=== PATIENT | female | born 1995 | race Caucasian/White ===

== ENCOUNTER 2019-12-04 06:30 | Inpatient (IN) ==
[2019-12-04] MEDS ORDERED: LR 1000 ML IV 1,000 ML IV ONE ×2 (06:40→07:36)
[2019-12-04] MEDS ORDERED: ANCEF 1 GRAM IV PREMIX* 1 G/50 ML BAG IV ONE ×2 (06:40→07:12)
[2019-12-04] MEDS ORDERED: D5 1/2 NS 1000 ML 1,000 ML IV SCH (06:49)
[2019-12-04] MEDS ORDERED: ANCEF VIAL 1 GRAM IVP ONE (06:49)
[2019-12-04] MEDS ORDERED: DILAUDID INJ ONE (06:53)
[2019-12-04] MEDS ORDERED: PITOCIN ONE ×2 (07:10→10:56)
[2019-12-04] MEDS ORDERED: D5 1/2 NS 1L W PITOCIN 20 UNITS/L 20 UNITS/1,000 ML BAG IV ONE (07:42)
[2019-12-04] MEDS ORDERED: DILAUDID INJ IVP PRN (08:46)
[2019-12-04] MEDS ORDERED: PHENERGAN INJ 25 MG IM PRN (08:46)
[2019-12-04] MEDS ORDERED: ZOFRAN INJ 4 MG VIAL IVP PRN ×2 (08:46→09:12)
[2019-12-04] MEDS ORDERED: BENADRYL INJ 50 MG VIAL IVP PRN (08:46)
[2019-12-04] MEDS ORDERED: REGLAN INJ 10 MG VIAL IVP PRN ×2 (08:46→09:12)
[2019-12-04] MEDS ORDERED: MYLICON TAB 80 MG CHEW PO PRN (09:12)
[2019-12-04] MEDS ORDERED: ADACEL or BOOSTRIX TDaP VACCINE IM ONE (09:12)
[2019-12-04] MEDS ORDERED: PERCOCET TAB 5/325 MG PO PRN ×2 (09:12→16:16)
[2019-12-04] MEDS ORDERED: D5 1/2 NS 1000 ML 1,000 ML with PITOCIN 20 UNITS IV SCH ×2 (09:12)
[2019-12-04] MEDS ORDERED: NARCAN INJ IVP PRN (09:12)
[2019-12-04] MEDS ORDERED: TORADOL 30 MG VIAL IVP PRN (09:12)
[2019-12-04] MEDS ORDERED: DIPRIVAN VIAL ONE (10:56)
[2019-12-04] MEDS ORDERED: EPHEDRINE SULFATE INJ ONE (10:56)
[2019-12-04] MEDS ORDERED: VERSED ONE (10:56)
[2019-12-04] MEDS ORDERED: MARCAINE SPINAL ONE (10:56)
[2019-12-04] MEDS ORDERED: XYLOCAINE 2 % (PLAIN) ONE (10:56)
[2019-12-04] MEDS: PRENATAL PLUS PO SCH (12:34)
[2019-12-04] MEDS: BENADRYL INJ 50 MG VIAL IVP PRN ×2 (12:55→20:51)
[2019-12-04] MEDS ORDERED: MOTRIN TAB 800 MG PO PRN (16:16)
[2019-12-04] MEDS: COLACE CAP 100 MG PO SCH (20:51)
[2019-12-04] MEDS: BACTROBAN TOPICAL OINT TOP SCH (22:12)
[2019-12-05] MEDS: BACTROBAN TOPICAL OINT TOP SCH (05:11)
[2019-12-05 05:42] LABS: HEMATOCRIT 24.3 % (36.0-47.0); HEMOGLOBIN 8.4 g/dL (12.0-16.0)
[2019-12-05] MEDS ORDERED: ADACEL or BOOSTRIX TDaP VACCINE IM ONE (08:44)
[2019-12-05] MEDS: COLACE CAP 100 MG PO SCH (08:57)
[2019-12-05] MEDS: PRENATAL PLUS PO SCH (08:57)
[2019-12-05 10:29] VITALS: BP 147/65
== END 2019-12-05 09:30 | disposition home or self-care (01) | DRG 819 ==
LOC: LD 06:30 → EDUNIT# 07:30 → MED/SURG 09:19
PROVIDERS: ADMIT Specialist; ATTEND Specialist
CPT/HCPCS: 36415; 85014; 85018; A4216; A4222; J0690; J1170; J1200; J2250; J2405; J2590; J2704; J3490; J7120; S0197